=== PATIENT | female | born 1985 | race Caucasian/White ===

== ENCOUNTER 2017-04-08 11:37 | Emergency (ER) | payer OTHER ==
[~2017-04-08] VITALS: Ht 162.6 cm; Wt 58.9 kg
[2017-04-08 11:41] VITALS: TEMP 36.8; Ht 162.6 cm; Wt 58.9 kg
[2017-04-08] MEDS ORDERED: PRENTAB26 PO (12:11)
[2017-04-08] MEDS ORDERED: PRT/20 PO (12:11)
[2017-04-08] MEDS ORDERED: [UNRECOGNIZED DRUG - CODE] TOP (12:52)
[2017-04-08 12:55] VITALS: BP 119/72; PULSE 80; O2SAT 100
--- NOTE | 2017-04-08 12:57 | EMERGENCY ROOM VISIT NOTE ---
ED Visit Note First contact with patient: 12:11 CHIEF COMPLAINT: Rib injury HISTORY OF PRESENT ILLNESS: This 31-year-old female patient presents to the emergency department, ambulatory, complaining of pain in the right posterior ribs after coughing. Note the patient is 6.5 months . The patient states the pain began 2 weeks ago after picking up [id number] child. She states she immediately began experiencing pain in the right mid back overlying the ribs. She states these symptoms seemed to improve, but yesterday she went into a dry coughing fit, when she felt a pop in the same location. She states the pain seems to radiating around towards the front of her ribs. There is increased pain with deep breathing, coughing, bending over, or standing on the right leg. Attempting to sit up from a lying position is painful. Denies shortness of breath or coughing up blood. The patient rates the pain as sharp and 9/10. The patient has taken nothing for relief of the pain , as she is allergic to acetaminophen and wasn't certain what she can take over the counter. No previous fractures to the ribs. The patient denies any other injury. The patient denies any abdominal pain, nausea, or vomiting. She denies any history of kidney stones or blood clots. She denies urinary symptoms or chest pain. REVIEW OF SYSTEMS: A 6 system review of systems was completed with positives and pertinent negatives listed in the HPI. ALLERGIES: Acetaminophen MEDICATIONS: vitamin, Protonix PMH: GERD SOCIAL HISTORY: The patient lives locally with family. She admits to smoking approximately 10 cigarettes per day. She denies drug or alcohol use. PHYSICAL EXAM: VITALS: Vitals are noted on the nurse's note and reviewed by myself. Vital signs stable. GENERAL: This is a 31-year-old white female, in no acute distress, nondiaphoretic, well-developed well-nourished. LUNGS: Clear to auscultation and breath sounds equal, no wheezes, rales, or rhonchi. HEART: Heart sounds are regular without murmurs, ectopy, gallop, or rub. CHEST: The right posterior chest wall is tender to palpation over the 8-10 ribs but there is no fracture crepitus and no ecchymosis. There is no tachypnea or dyspnea. ABDOMEN : Positive bowel sounds x 4. Normal tympanic percussion. Soft, nontender, without masses or organomegaly. No guarding or rebound tenderness. No CVA tenderness NEURO: Patient was alert and oriented to person place and time. EMERGENCY DEPARTMENT COURSE: I examined the patient. I discussed with the patient the benefits versus risks associated with performing the x-ray. As the patient is 6-1/2 months and there was no significant trauma or injury, I do not feel that x-ray will likely change the plan of care. I discussed with the patient management for nondisplaced rib fractures, and offered her treatment in case of a fracture without performing the x-ray. The patient is agreeable, and states she would not like to have x-ray performed at this time due to her . As the patient is allergic to acetaminophen, I am limited as to what prescription medication I can provide with the patient. I discussed options with [place] pharmacist here in the emergency department. We determined that Capsaicin topically would be the safest option in this case. I did discuss with the patient that this appears to be the safest option with fewest risk for side effects. The only other medication which seems to be reasonable would be narcotics, but given her , I do not feel comfortable giving her narcotics first line for her discomfort. The patient is agreeable to this plan. She was encouraged to follow up with her primary care provider and/or visual stylist if the Capsaicin is not helping her symptoms. All questions Reines to the patient's satisfaction. Discharge instructions reviewed , and the patient was discharged home in good condition. I attest that I have personally reviewed the patient's current medication list. Patient was found to have normal blood pressure on screening and does not require follow-up. Etiologies such as costochondritis, fracture, cardiac ischemia, cardiac ischemia , pulmonary embolism, pneumonia, pneumothorax, musculoskeletal, infections, gastrointestinal, genitourinary, as well as others were entertained. DIAGNOSIS: Costochondritis Current/Historical Medications Scheduled Multivit/Min/Iron/Fol Ac/Pren ( Vitamin), 1 TAB PO DAILY Pantoprazole (Protonix), 20 MG PO DAILY Scheduled PRN Capsaicin (Capsagel Extra Strength), 1 APPLN TOP QID PRN for Pain Allergies Coded Allergies: Acetaminophen (Unverified Adverse Reaction, Intermediate, HIVES, 04/08/17) Vital Signs Date Time Temp Pulse Resp B/P (MAP) Pulse Ox O2 Delivery O2 Flow Rate FiO2 04/08/17 12:55 80 18 119/72 100 Room Air 04/08/17 11:41 36.8 86 18 129/66 98 Room Air Departure Information Impression Primary Impression: Costochondritis Dispostion Home / Self-Care Condition GOOD Prescriptions Capsaicin (CAPSAGEL EXTRA STRENGTH) 0.05 % Gel 1 APPLN TOP QID Y for Pain, #1 TUBE Prov: Quyen Kim PA-C 04/08/17 Referrals No Doctor, Assigned (PCP) Patient Instructions ED Chest Pain Costochondritis, My [facility] Additional Instructions You were seen in the emergency department today for right rib pain. As discussed, I suspect costochondritis as the cause. You were given a prescription for capsaicin gel to be used topically 3-4 times per day for pain. This can be found [id number], but he prescription was sent to the pharmacy for you. If the capsaicin gel does not seem to be helping, contact your visual stylist and/ or primary care provider for possible opiate prescription. Continue to use ice and/or heating pad for comfort. Use the spirometer you were provided with to take deep breaths, at least 10 breaths per hour to ensure you keep the lungs fully inflated and to prevent collapse or pneumonia. Follow-up with the PCP in 2-3 days for re-check of your symptoms. Return to the ED for worsening pain, coughing up sputum or blood, difficulty breathing, significant chest pain or pressure, or other concerning symptoms. Work Instructions Return To Work: 1 day
== END 2017-04-08 13:15 | disposition home or self-care (01) ==
LOC: C.EDB 11:38 → C.EDC 13:15
DX: O99.89 Other specified diseases and conditions complicating pregnancy, childbirth and the puerperium (principal); M94.0 Chondrocostal junction syndrome [Tietze]; X50.0XXA Overexertion from strenuous movement or load, initial encounter; Z3A.26 26 weeks gestation of pregnancy; R05 Cough

== ENCOUNTER 2017-05-06 08:43 | Emergency (ER) | payer OTHER ==
[~2017-05-06] VITALS: Ht 160 cm; Wt 59.3 kg
[~2017-05-06 08:43] MED LIST: PRENTAB26 PO; PRT/20 PO; [UNRECOGNIZED DRUG - CODE] TOP
[2017-05-06 08:47] VITALS: TEMP 36.6; Ht 160 cm; Wt 59.3 kg
[2017-05-06] MEDS ORDERED: OXYC1TAB3 PO (09:51)
--- NOTE | 2017-05-06 09:55 | EMERGENCY ROOM VISIT NOTE ---
History First contact with patient: 09:00 Chief Complaint: RIB PAIN Stated Complaint: SHARP PAIN LEFT SIDE RIB CAGE History of Present Illness The patient is a 31 year old female who presents to the Emergency Room via private vehicle with complaints of "sharp pain left side rib cage". The patient was instructed us today noting that about 7 days ago she was holding the child's hand when she was pulled down slightly. She notes no pain at that time however she has had progressing pain and left side of the ribs. Yesterday she heard a pop followed by sharp stabbing sensation in the left side of the ribs. It is worse with position and by pressing on that region. She rates the overall pain as an 8/10. She has tried lidocaine patches, and different types of rubs to the area. She has been refraining from ibuprofen because of the , and does not take acetaminophen because she is allergic to this. She is here noting that she was informed that if she were transferred to the ER because the pain and perhaps narcotic medication will be warranted. She denies any chest pain, shortness of breath, hemoptysis, unilateral leg swelling. She notes that she does smoke 10-15 cigarettes per day. Review of Systems A complete 10-point Review of Systems was discussed with the patient, with pertinent positives and negatives listed in the History of Present Illness. All remaining Review of Systems questions can be considered negative unless otherwise specified. Past Medical/Surgical History Previous pregnancies Social History Smoking Status: Current Every Day Smoker Current/Historical Medications Scheduled Multivit/Min/Iron/Fol Ac/Pren ( Vitamin), 1 TAB PO DAILY Pantoprazole (Protonix), 20 MG PO DAILY Scheduled PRN Oxycodone Ir (Roxicodone Ir), 1 TAB PO Q6 PRN for Pain Physical Exam Vital Signs Date Time Temp Pulse Resp B/P (MAP) Pulse Ox O2 Delivery O2 Flow Rate FiO2 05/06/17 10:23 79 16 127/69 99 05/06/17 08:47 36.6 81 18 131/73 100 Room Air Physical Exam VITAL SIGNS - Vital signs and nursing notes were reviewed. Stable. Non- tachycardic and is saturating well on room air 100%. GENERAL -31-year-old female appearing her stated age who is in no acute distress. Communicates well with provider and answers questions appropriately. SKIN - Without rashes. No petechial or meningeal rash. Skin overlying the affected region is unremarkable. HEAD - NC/AT. EYES - Sclera anicteric. NOSE - Midline and without cyanosis. No epistaxis or purulent drainage noted. MOUTH/OROPHARYNX - Without perioral cyanosis. LUNGS - Chest wall symmetric without accessory muscle use, intercostals retractions, or central cyanosis. Normal vesicular breath sounds CTA B/L. No wheezes, rales, or rhonchi appreciated. There is tenderness to palpation overlying the left posterior/lateral mid rib. CARDIAC - RRR with S1/S2. No murmur, rubs, or gallops appreciated. ABDOMEN - Abdominal contour normal with evidence of gestation. No tenderness. EXTREMITIES - No clubbing or peripheral cyanosis. Medical Decision & Procedures Medical Decision Patient was seen and evaluated as above. She presents to us today with left rib pain. It is reproducible on exam. I suspect she either is experiencing a small rib fracture, or cartilage irritation. There is no vaginal bleeding, cramping or abdominal pain. There is no chest pain or shortness of breath. I favor this to be of musculoskeletal etiology and do not suspect PE. She is tearful on exam, and notes that she has tried everything she can to help the pain. I talked with her about her modalities and she has essentially tried everything that she can and notes that she was informed that if her pain would be severe enough she had to go to the emergency department then perhaps narcotics will be warranted. I informed her that I do not feel comfortable prescribing her narcotics without the input of her SENIOR TECHNICAL ANALYST. I discussed the case with the on-call SENIOR TECHNICAL ANALYST physician for [facility]. At 9:32 AM I spoke with Dr. Cullen. We discussed the patient's particular case given that she has essentially tried every medication that is safe during that she could and is not allergic to. It was stated that I could provide the patient with 2 days of hydrocodone or oxycodone and that she is to follow-up with their office on Thursday. Patient will be given a 2 day supply of oxycodone immediate release , and is to follow with SENIOR TECHNICAL ANALYST on Thursday. A thorough discussion regarding benefits versus risk of opioids was discussed. It was discussed to include but not limited to the potential defects/harm that could develop with the forming fetus. Patient verbalized understanding, and is aware of risk and would still like to pursue with the narcotic medication. No red flags in the [place] drug monitoring system. The patient was educated upon management, had questions answered prior to discharge, and was discharged home in good condition. Case was discussed with the attending physician In the evaluation and treatment of this patient, the following differential diagnoses were considered: Rib Fracture, Rib Contusion, Hemothorax, Pneumothorax , Pneumonia, Pleural Effusion. Impression Primary Impression: Rib pain on left side Departure Information Dispostion Home / Self-Care Condition GOOD Prescriptions Oxycodone Ir (Roxicodone Ir) 5 Mg Tab 1 TAB PO Q6 Y for Pain, #8 TAB For Initial Treatment Prov: Pepe Glaser PA-C 05/06/17 Referrals No Doctor, Assigned (PCP) Canan. Do MD Patient Instructions My [facility] Additional Instructions You have been treated in the Emergency Department for Rib pain on the left side. You have been prescribed Oxy IR to be used for pain control. This is a narcotic medication. You cannot drive or consume alcohol while on this medicine. This medicine should only be used for pain that cannot be controlled with over-the- counter pain medicines. If this is an acute injury, ice can be applied to the area of pain for the first 3 days to help decrease pain and inflammation. After the first 3 days, a heating pad can be used over the area for continued soothing relief. To minimize your discomfort, you can hug a pillow while coughing or sneezing. Additionally, you should continue to force yourself to take nice, deep breaths. Full expansion of the lungs is necessary to prevent the accumulation of fluid in the lung tissue and development of pneumonia. You should schedule a follow-up appointment in 2 days with your OBGYN Provider for further evaluation and treatment of your back pain. Please call them later today Return to the Emergency Department if your current symptoms worsen despite treatment course outlined above, or if you develop any of the following symptoms : intractable pain despite aforementioned treatment course, development of a wet cough, bloody cough, fever, chills, or increased shortness of breath.
[2017-05-06 10:23] VITALS: BP 127/69; PULSE 79; O2SAT 99
== END 2017-05-06 10:24 | disposition home or self-care (01) ==
LOC: C.EDB 08:44 → C.EDA 10:24
DX: R07.81 Pleurodynia (principal); O99.330 Smoking (tobacco) complicating pregnancy, unspecified trimester; F17.210 Nicotine dependence, cigarettes, uncomplicated

== ENCOUNTER 2017-06-05 19:54 | Inpatient (IN) | payer OTHER ==
[~2017-06-05] VITALS: Ht 162.6 cm; Wt 62.0 kg
[~2017-06-05 19:54] MED LIST changes: +OXYC1TAB3 PO; -[UNRECOGNIZED DRUG - CODE] TOP
[2017-06-05] MEDS ORDERED: LACTATED RINGER'S 1000ML 500 ML IV ONE (19:57)
[2017-06-05] MEDS ORDERED: LACTATED RINGER'S 1000ML 1,000 ML IV SCH (19:57)
[2017-06-05] MEDS ORDERED: IV FLUIDS COMPLETED PRN (20:15)
[2017-06-05] MEDS ORDERED: OXYTOCIN 30 UNITS/500ML NSS IV ONE (20:32)
[2017-06-05 20:36] LABS: HEMATOCRIT 30.9 % (37-47); HEMOGLOBIN 9.8 g/dL (12.0-16.0); MEAN CELL VOLUME 74.8 fL (80-100); MEAN CORPUSCULAR HEMOGLOBIN 23.7 pg (25-34); MEAN CORPUSCULAR HGB CONC 31.7 g/dl (32-36); NUCLEATED RED BLOOD CELL ABS 0.06 K/uL (0-0); PLATELET COUNT 343 K/uL (130-400); RED CELL DISTRIBUTION WIDTH CV 16.5 % (11.5-14.5); RED CELL DISTRIBUTION WIDTH SD 45.3 fL (36.4-46.3); WHITE BLOOD COUNT 19.96 K/uL (4.8-10.8)
[2017-06-05] MEDS ORDERED: OXYTOCIN 30 UNITS/500ML NSS IV PRN (20:45)
[2017-06-05] MEDS ORDERED: LANOLIN OINT EXT PRN (20:45)
[2017-06-05] MEDS ORDERED: DIPHTHERIA/TETANUS/PERTUSSIS 0.5 ML SYR/VIAL IM. ONE (20:45)
[2017-06-05] MEDS ORDERED: HYDROCORTISONE ACETATE 25 MG SUPP PR PRN (20:45)
[2017-06-05] MEDS ORDERED: BENZOCAINE 20% AER SPR 82.5 GM CAN EXT PRN (20:45)
[2017-06-05] MEDS ORDERED: SUPERCREAM 0.870 % 15GM JAR EXT PRN (20:45)
[2017-06-05 21:22] VITALS: Ht 162.6 cm; Wt 62.0 kg
--- NOTE | 2017-06-05 22:23 | DELIVERY SUMMARY ---
DATE OF OPERATION: 06/05/2017 TIME OF DELIVERY: 2028. DELIVERY OF PLACENTA: 2031. DELIVERY NOTE: The patient is a 31-year-old 6, para 4 at 36 weeks and 4 days gestation who was admitted to labor and delivery on the evening of 06/05/2017 in active labor. She began radha around 5 p.m. On arrival, she was found to be 4 cm, 100% and 0 station. She progressed spontaneously on her own. She reached complete dilation at 2021 and was ruptured at 2021 with minimal clear amniotic fluid noted and pushed to deliver at 2028. She delivered a viable male in the right occiput anterior position with nuchal cord x1. The baby was delivered and placed on the patient's abdomen. The cord was clamped x2 and cut. The Apgars were 8 at one minute, 9 at five minutes. Please see nursing notes for further baby assessment. Cord blood was then obtained and intact placenta with 3-vessel cord was delivered at 2031 and sent to pathology. Oxytocin infusion was then begun. The lower uterine segment and vagina were cleared of any blood clots and debris. Exploration of the perineum noted no lacerations. Estimated blood loss was 200 mL. All sponge and instrument counts were found to be correct x2. Both patient and baby tolerated the delivery well and were in the recovery with stable vital signs. I attest to the content of the Intraoperative Record and any orders documented therein. Any exception s are noted below.
[2017-06-05 22:45] VITALS: BP 146/64; PULSE 85; TEMP 37; O2SAT 97
[2017-06-05 23:30] VITALS: BP 111/68; PULSE 66; TEMP 37.3
[2017-06-06] MEDS: IBUPROFEN 600 MG TAB PO PRN ×2 (03:22→20:53)
[2017-06-06 04:25] VITALS: BP 116/69; PULSE 68; TEMP 36.9
[2017-06-06 06:56] LABS: HEMATOCRIT 27.7 % (37-47); HEMOGLOBIN 8.7 g/dL (12.0-16.0)
[2017-06-06 08:10] VITALS: BP 117/63; PULSE 70; TEMP 37
[2017-06-06] MEDS: FERROUS SULFATE 325 MG TAB PO SCH (08:29)
[2017-06-06] MEDS: PANTOprazole SOD 40 MG TAB PO SCH (08:29)
[2017-06-06] MEDS: DOCUSATE SODIUM 100 MG CAP PO SCH ×2 (08:29→20:00)
[2017-06-06] MEDS: PRENATAL VITAMIN TAB PO SCH (08:29)
--- NOTE | 2017-06-06 10:24 | OB/GYN Progress Note ---
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 Subjective conversation w/ patient, physical exam Ambulation: ambulating normally Voiding: no voiding problems Passing Gas: Yes Diet Tolerance: Regular Diet Lochia: Small Feeding Type: Breast Feeding Objective Vital Signs Date Time Temp Pulse Resp B/P (MAP) Pulse Ox O2 Delivery O2 Flow Rate FiO2 06/06/17 08:10 37.0 70 20 117/63 (81) 06/06/17 04:25 36.9 68 18 116/69 (85) Room Air 06/05/17 23:30 Room Air 06/05/17 23:30 37.3 66 18 111/68 (82) Room Air 06/05/17 22:45 37.0 85 20 146/64 (91) 97 Room Air 06/05/17 22:45 Room Air Physical Exam General Appearance: NO APPARENT DISTRESS Abdomen: non tender, soft Fundus: Firm Extremities: non-tender, no pedal edema, no calf tenderness Laboratory Results Last 24 Hours Test 06/05/17 20:00 06/05/17 20:27 06/06/17 06:21 Urine Opiates Screen NEG Urine Methadone, Qualitative NEG Urine Barbiturates NEG Urine Phencyclidine (PCP) Level NEG Ur Amphetamine/Methamphetamine NEG MDMA (Ecstasy) Screen NEG Urine Benzodiazepines Screen NEG Urine Cocaine Metabolite NEG Urine Marijuana (THC) POS White Blood Count 19.96 K/uL Red Blood Count 4.13 M/uL Hemoglobin 9.8 g/dL 8.7 g/dL Hematocrit 30.9 % 27.7 % Mean Corpuscular Volume 74.8 fL Mean Corpuscular Hemoglobin 23.7 pg Mean Corpuscular Hemoglobin Concent 31.7 g/dl Platelet Count 343 K/uL Mean Platelet Volume 9.0 fL RDW Standard Deviation 45.3 fL RDW Coefficient of Variation 16.5 % Nucleated RBC Absolute Count (auto) 0.06 K/uL Neutrophils % (Manual) 76.6 % Lymphocytes % (Manual) 19.1 % Monocytes % (Manual) 4.3 % Nucleated Red Blood Cells % 0.3 % Neutrophils # (Manual) 15.29 K/uL Total Absolute Neutrophils 15.29 K/uL Lymphocytes # (Manual) 3.81 K/uL Total Absolute Lymphocytes 3.81 K/uL Monocytes # (Manual) 0.86 K/uL Assessment and Plan Post- Day Number: 1 Continue Routine Care: tent d/c in AM
[2017-06-06 11:55] VITALS: BP 117/69; PULSE 64; TEMP 37
[2017-06-06 15:30] VITALS: BP 116/70; PULSE 64; TEMP 37
[2017-06-06] MEDS ORDERED: BISACODYL 5 MG TABEC PO SCH (20:00)
[2017-06-06 22:22] VITALS: BP 121/76; PULSE 66; TEMP 37.1
[2017-06-07] VITALS: BP 117/62; PULSE 57; TEMP 36.7
[2017-06-07] MEDS ORDERED: BISACODYL 10 MG SUPP PR PRN (07:00)
[2017-06-07 07:26] LABS: HEMATOCRIT 32.2 % (37-47); HEMOGLOBIN 9.9 g/dL (12.0-16.0); MEAN CELL VOLUME 77.2 fL (80-100); MEAN CORPUSCULAR HEMOGLOBIN 23.7 pg (25-34); MEAN CORPUSCULAR HGB CONC 30.7 g/dl (32-36); MEAN PLATELET VOLUME 9.1 fL (7.4-10.4); NUCLEATED RED BLOOD CELL ABS 0.03 K/uL (0-0); PLATELET COUNT 245 K/uL (130-400); RED CELL DISTRIBUTION WIDTH CV 16.6 % (11.5-14.5); RED CELL DISTRIBUTION WIDTH SD 45.9 fL (36.4-46.3); WHITE BLOOD COUNT 18.18 K/uL (4.8-10.8)
[2017-06-07] MEDS: PANTOprazole SOD 40 MG TAB PO SCH (07:52)
[2017-06-07] MEDS: DOCUSATE SODIUM 100 MG CAP PO SCH (07:52)
[2017-06-07] MEDS: FERROUS SULFATE 325 MG TAB PO SCH (07:52)
[2017-06-07] MEDS: PRENATAL VITAMIN TAB PO SCH (07:52)
[2017-06-07] MEDS: IBUPROFEN 600 MG TAB PO PRN (07:54)
[2017-06-07 08:00] VITALS: BP 116/72; PULSE 65; TEMP 36.8
[2017-06-07] MEDS ORDERED: MTR600X PO (09:16)
--- NOTE | 2017-06-07 09:30 | OB/GYN Progress Note ---
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 Subjective conversation w/ patient, physical exam Ambulation: ambulating normally Voiding: no voiding problems Passing Gas: Yes Diet Tolerance: Regular Diet Lochia: Small Feeding Type: Bottle Feeding Objective Vital Signs Date Time Temp Pulse Resp B/P (MAP) Pulse Ox O2 Delivery O2 Flow Rate FiO2 06/07/17 08:00 36.8 65 20 116/72 (87) 06/07/17 00:00 36.7 57 18 117/62 (80) Room Air 06/07/17 00:00 Room Air 06/06/17 22:22 37.1 66 20 121/76 (91) Room Air 06/06/17 15:30 37.0 64 20 116/70 (85) 06/06/17 11:55 37.0 64 20 117/69 (85) Physical Exam General Appearance: WELL-APPEARING, NO APPARENT DISTRESS Abdomen: non tender, soft Fundus: Firm Extremities: non-tender, normal inspection, no pedal edema, no calf tenderness Laboratory Results Last 24 Hours Test 06/07/17 07:13 White Blood Count 18.18 K/uL Red Blood Count 4.17 M/uL Hemoglobin 9.9 g/dL Hematocrit 32.2 % Mean Corpuscular Volume 77.2 fL Mean Corpuscular Hemoglobin 23.7 pg Mean Corpuscular Hemoglobin Concent 30.7 g/dl RDW Standard Deviation 45.9 fL RDW Coefficient of Variation 16.6 % Platelet Count 245 K/uL Mean Platelet Volume 9.1 fL Nucleated RBC Absolute Count (auto) 0.03 K/uL Nucleated Red Blood Cells % 0.2 % Assessment and Plan Post- Day Number: 2 Continue Routine Care: discharged follow up in 6 weeks
== END 2017-06-07 12:55 | disposition home or self-care (01) | DRG 775 ==
LOC: C.LD 19:54 → C.OPB 19:54 → C.LD 20:02 → OBSVTOIN 20:02 → C.OPB 20:02 → C.OBG 23:10 → OBSVTOIN 06-06 10:39 → INTOOBSV 06-06 10:39
PROVIDERS: ADMIT Obstetrics & Gynecology; ATTEND Obstetrics & Gynecology
PROC: 10E0XZZ Delivery of Products of Conception, External Approach (ICD-10-PCS; principal; 2017-06-05)
DX: O60.14X0 Preterm labor third trimester with preterm delivery third trimester, not applicable or unspecified (principal); O62.3 Precipitate labor; O69.81X0 Labor and delivery complicated by cord around neck, without compression, not applicable or unspecified; Z3A.36 36 weeks gestation of pregnancy; Z37.0 Single live birth